=== PATIENT | female | born 1995 | race Hispanic/Latino ===

== ENCOUNTER 2017-07-13 06:37 | Inpatient (IN) | payer OTHER ==
--- OUTSIDE RECORDS SUMMARY | 2017-07-13 06:39 | XMS REPORT ---
:1995 Author Organization eClinicalWorks Care Team Providers Name Role Phone Gladys Bustillos Provider Role Unavailable Allergies No Known Allergies Problems Problem Type Condition Code Onset Dates Condition Status Problem GBS bacteriuria R82.71 Active Assessment Normal in third trimester Z34.93 Active Problem Normal in third trimester Z34.93 Active Assessment GBS bacteriuria R82.71 Active Medications Medication Code System Code Instructions Start End Date Status Dosage Date Ferralet 90 [facility] [id number] 90-1 MG Orally June 24, Active 1 tablet Once a day 2017 Results No Known Results Summary Purpose eClinicalWorks Submission
--- OUTSIDE RECORDS SUMMARY | 2017-07-13 06:39 | XMS REPORT ---
[...] End Date Status Dosage Date Ferralet 90 [facility] [id number] 90-1 MG Orally June 24, Active 1 tablet Once a day 2017 Results No Known Results Summary Purpose eClinicalWorks Submission
[2017-07-13] MEDS ORDERED: PROMETHAZINE 25 MG/ML VIAL IV PRN (07:12)
[2017-07-13] MEDS ORDERED: BUTORPHANOL 1 MG/ML INJ IV PRN (07:12)
[2017-07-13] MEDS ORDERED: CARBOPROST TROME 250 MCG/ML IM PRN (07:12)
[2017-07-13] MEDS ORDERED: Ringers Lactate 1,000 ML IV PRN (07:12)
[2017-07-13] MEDS ORDERED: METHYLERGONOVINE 0.2MG/ML AMP IM PRN (07:12)
[2017-07-13 07:33] LABS: RPR Titer ND
[2017-07-13 07:38] LABS: Urine Appearance CLEAR; Urine Bilirubin NEGATIVE (NEG); Urine Blood NEGATIVE (NEG); Urine Color YELLOW; Urine Glucose NEGATIVE (NEG); Urine Protein NEGATIVE (NEG)
[2017-07-13] MEDS ORDERED: ROPIVACAINE HCL 100 ML IV PRN (07:39)
[2017-07-13 07:42] LABS: Absolute Lymphocytes (CBC) 1.9 K/uL (0.7-4.9); Absolute Monocytes 0.9 K/uL (0.1-1.3); Absolute Neutrophil 9.7 K/uL (1.8-8.0); Basophils % 0.5 % (0-1.3); Eosinophils % 0.5 % (0-4.4); Lymphocytes % 14.9 % (15.3-44.8); MCH 28.4 pg (27.0-35.0); MCV 86.4 fL (80-100); MPV 10.2 fL (7.6-11.3); Monocytes % 6.9 % (3.3-12.3); RBC Red Blood Cell Count 3.94 M/uL (3.86-4.86)
[2017-07-13] MEDS ORDERED: ROPIVACAINE HCL 0.2% 20ML AMP IV ONE (07:42)
[2017-07-13] MEDS ORDERED: FENTANYL CITR 100 MCG/2 ML IV ONE (07:42)
[2017-07-13 07:52] LABS: Urine Microscopic Reflex ORDER UMIC
[2017-07-13] MEDS ORDERED: PENICILLIN G POT 5 MU/100 ML VIAL IV SCH (08:00)
[2017-07-13] MEDS ORDERED: CLINDAMYCIN IV SCH (08:00)
[2017-07-13] MEDS ORDERED: [UNRECOGNIZED DRUG - OTHER] IV SCH (08:00)
[2017-07-13] MEDS ORDERED: OXYTOCIN/LR 20 UNIT/1,000 ML BAG IV SCH (08:00)
[2017-07-13] MEDS ORDERED: Ringers Lactate 1,000 ML IV SCH (08:00)
[2017-07-13 08:11] LABS: Urine Bacteria >50 /HPF (<20); Urine Culture Reflex Order NOT NEEDED; Urine RBC <5 /HPF (NONE SEEN); Urine Yeast PRESENT (NONE SEEN)
[2017-07-13 08:12] VITALS: BMI 37.9
[2017-07-13] MEDS ORDERED: PENICILLIN 2.5 MU in NA CHLORIDE 0.9% 100 ML IV SCH (12:00)
[2017-07-13] MEDS ORDERED: IBUPROFEN 200 MG TAB PO PRN (12:43)
[2017-07-13] MEDS ORDERED: ACETAMINOPHEN 500 MG TAB PO PRN (12:43)
[2017-07-13] MEDS ORDERED: DOCUSATE NA/SENNA CONC 1 TAB PO PRN (12:43)
[2017-07-13] MEDS ORDERED: MEASLES,MUMPS,RUBELLA VAC 0.5ML SQVAC ONE (12:43)
[2017-07-13] MEDS ORDERED: Oxycodone HCl/Acetaminophen 1 TAB TAB PO PRN ×2 (12:43)
[2017-07-13] MEDS ORDERED: METHYLERGONOVINE 0.2 MG TAB PO PRN (12:43)
[2017-07-13] MEDS ORDERED: BISACODYL 10 MG RECTAL SUPP RECT PRN (12:43)
[2017-07-13] MEDS ORDERED: ONDANSETRON 4 MG (ODT) TAB PO PRN (12:43)
--- NOTE | 2017-07-13 20:05 | HP ---
Date of Admission: 07/13/2017 History Of Present Illness: Fatimah is a 22-year-old, 2, para 0-0-1-0 , who presents at 40 weeks and 2 days gestation in labor. She states that she has been thanh for the past 2 days, however her contractions worsened around 2:00 a.m. this morning. She presented to labor and delivery, at around 7 a.m. and was noted to be 4-5 cm at that time, by nurse's exam. She denies any leakage of fluid. Denies vaginal bleeding. Reports good movement. Denies any other issues. She has obtained care with Dr. Bustillos. records are present and reviewed. She was transferred from another provider in the middle of her due to location issues during the of an obesity rubella nonimmune and GBS bacteria. Glucose test was normal. She had noninvasive testing which revealed a low risk female . Anatomy ultrasound revealed no abnormalities. Tdap was given on April 28. She received a flu vaccine on February 24. See record for further details. Past Medical History: Negative. Past Surgical History: Negative. Family History: Noncontributory. Social History: She presents here today with the father of the baby. She denies any tobacco, alcohol, or drug use. Review of Systems: Negative except for HPI. Physical Examination: Vital Signs: On admission, blood pressure is 117/69, respirations 18, pulse is 78, temperature 97.1. General: The patient is in moderate to severe pain distress due to contractions. Head and neck: Normocephalic and atraumatic. Heart: Regular rate and rhythm. Abdomen: Gravid, obese. EXTREMITIES: Bilateral lower extremities, no clubbing, cyanosis, or edema. Vaginal Exam: Normal external female genitalia. Vagina is pink, moist, normal rugae. Cervix is 5 cm dilated, 90% effaced, minus-3 station. Rupture of membranes performed. Clear fluid noted. scalp electrode applied. heart rate monitoring, baseline heart rate 140, moderate variability, good accelerations seen, occasional variable decelerations, category 2 tracing. Tiger contractions every 1-4 minutes are present. Assessment And Plan: Fatimah is a 22-year-old, 2, para 0-0-1-0, who presents at 40 weeks and 2 days gestation in labor. Rupture of membranes has been performed. Penicillin has been given for GBS prophylaxis. The patient desires epidural anesthesia has been notified epidural to be placed as soon as possible. Continuous maternal monitoring will be performed. Anticipate vaginal . TANYA Voice ID: [id number] MTDD
[2017-07-13 21:14] LABS: RPR (Rapid Plasma Reagin) NON-REACT (NON-REACT)
--- NOTE | 2017-07-13 22:54 | P.OP ---
Date of Service: 07/13/17 Findings and Operative Technique Patient delivered a viable female infant in cephalic presentation on 07/13/17 at 12:25 via vacuum assisted vaginal delivery with a nuchal cord x1. Vacuum was utilized due to bradycardia. It was used once successfully. Nuchal cord was manually reduced. Once infant was delivered the nose and mouth were suctioned with a suction bulb. The cord was clamped and cut and infant was placed on the mother's abdomen for skin to skin bonding. Attention was then turned to the placenta which was delivered with gentle traction at 12:28. Placenta was noted to be intact but some membranes were extracted from the cervical os. Attention was then turned to the perineum which was noted to have a first degree laceration. This was repaired with a 2.0 vicryl in a usual fashion. There was also a small laceration on the right vaginal side wall which was noted to be bleeding and was repaired with a 2.0 vicryl. Hemostasis was achieved. Mom and baby are both doing well. She plans to breast feed. She is bonding well with the baby. APGARS were 9/9. Weight was 6 lb 15 ounces. First stage of labor was 2 hours and 51 min. Second stage was 35 min. EBL was 300cc. Patient received penicillin.
[2017-07-14 06:30] LABS: Absolute Lymphocytes (CBC) 1.9 K/uL (0.7-4.9); Absolute Monocytes 1.2 K/uL (0.1-1.3); Absolute Neutrophil 13.3 K/uL (1.8-8.0); Basophils % 0.2 % (0-1.3); Eosinophils % 0.5 % (0-4.4); Hematocrit 30.6 % (36.0-45.0); Lymphocytes % 11.6 % (15.3-44.8); MCH 28.7 pg (27.0-35.0); MCV 86.4 fL (80-100); MPV 10.2 fL (7.6-11.3); Monocytes % 7.1 % (3.3-12.3); RBC Red Blood Cell Count 3.55 M/uL (3.86-4.86)
--- NOTE | 2017-07-14 07:39 | P.DS ---
Admission Date: 07/13/17 Discharge Date: 07/14/17 Disposition: ROUTINE DISCHARGE Comment: Rounding with D/c summary Discharge Condition: GOOD Brief History of Present Illness: 22 y.o. at term who was admitted for spontaneous onset of labor. She was delivered by on-call Dr. Pierre. Please see op report for details. Hospital Course: Pt delivered by [facility] following admission for spontaneous labor. See op report for details. Her pp course has been uncomplicated and she is her . She feels well today and denies significant pain. [place] described as light menses. She is stable for d/c home on PPD #1. Vital Signs/Physical Exam: Temp Pulse Resp BP Pulse Ox 96.9 F 70 16 92/50 L 07/14/17 04:25 07/14/17 04:25 07/14/17 04:25 07/14/17 04:25 General: Alert, In no apparent distress, Oriented x3 Respiratory: Other (normal effort) Cardiovascular: Normal pulses Gastrointestinal: Soft and benign, Non-distended, Other (Uterus firm and below umbilicus) Musculoskeletal: No swelling, No tenderness Integumentary: No rashes, No breakdown Neurological: Normal speech Laboratory Data at Discharge: WBC 16.5 K/uL (4.3-10.9) H D 07/14/17 05:38 Hgb 10.2 g/dL (12.0-15.0) L 07/14/17 05:38 Hct 30.6 % (36.0-45.0) L 07/14/17 05:38 Plt Count 261 K/uL (152-406) 07/14/17 05:38 Home Medications: Pnv No.122/Iron/Folic Acid [ Multi Tablet] 1 each PO DAILY 07/13/17 Ibuprofen [Motrin*] 800 mg PO Q8HP PRN #30 tab 07/14/17 New Medications: Ibuprofen [Motrin*] 800 mg PO Q8HP PRN #30 tab PRN Reason: [id number] Patient Discharge Instructions: Complete pelvic rest for 6 weeks after . Notify doctor of heavy bleeding, pain, fever/chills, or other signs of infection. See doctor in 6 weeks for exam. Diet: Regular Activity: Ad wiley Followup: Gladys Bustillos MD [ACTIVE - CAN ADMIT] -
[2017-07-14] MEDS ORDERED: MEASLES,MUMPS,RUBELLA VAC 0.5ML SQVAC ONE (10:02)
[2017-07-14 12:37] VITALS: BP 99/60; TEMP 97.1
[2017-07-15 18:23] LABS: HBsAG Nonreactive (Nonreactive)
== END 2017-07-14 15:00 | disposition home or self-care (01) | DRG 775 ==
LOC: L&D 06:37 → 2ND-WC 07:05
PROVIDERS: ADMIT Obstetrics & Gynecology; ATTEND Student in an Organized Health Care Education/Training Program
PROC: 10907ZC Drainage of Amniotic Fluid, Therapeutic from Products of Conception, Via Natural or Artificial Opening (ICD-10-PCS; principal; 2017-07-13)
PROC: 10D07Z6 Extraction of Products of Conception, Vacuum, Via Natural or Artificial Opening (ICD-10-PCS; 2017-07-13)
PROC: 0HQ9XZZ Repair Perineum Skin, External Approach (ICD-10-PCS; 2017-07-13)
DX: O76 Abnormality in fetal heart rate and rhythm complicating labor and delivery (principal); O69.81X0 Labor and delivery complicated by cord around neck, without compression, not applicable or unspecified; O70.0 First degree perineal laceration during delivery; O99.824 Streptococcus B carrier state complicating childbirth; Z3A.40 40 weeks gestation of pregnancy; Z37.0 Single live birth; Z23 Encounter for immunization
CPT/HCPCS: 36415; 81003; 81015; 85025; 86592; 86850; 86900; 86901; 87340; 90707; J2210; J2590; J2795; J3010